=== PATIENT | female | born 1965 | race African-American/Black ===

== ENCOUNTER 2024-03-09 10:20 | Outpatient (CLI) | payer OTHER | END 2024-03-09 10:21 | disposition home or self-care (01) | LOC: RAD 10:20 | PROVIDERS: ATTEND Physician Assistant | DX: R13.12 Dysphagia, oropharyngeal phase (principal); R13.19 Other dysphagia; K21.9 Gastro-esophageal reflux disease without esophagitis | CPT/HCPCS: 74230 ==